=== PATIENT | female | born 1945 | race Caucasian/White ===

== ENCOUNTER 2017-03-16 11:55 | Inpatient (IN) ==
[2017-03-16] MEDS ORDERED: ASPIRIN PO STA (12:02)
[2017-03-16 12:24] LABS: BASO% 0.1 % (0.0-0.8); EOS# 0.01 X1000 (0.0-0.7); EOS% 0.1 % (0.0-10.0); HEMATOCRIT 38.6 % (37.0-47.0); HEMOGLOBIN 12.1 g/dL (12.0-16.0); LYMPH# 1.09 X1000 (1.2-3.4); LYMPH% 6.4 % (20.5-51.1); MANUAL DIFF NEEDED? NO; MCH 28.3 PG (27-31); MCHC 31.3 g/dL (33-37); MCV 90.4 FL (81-99); MONO# 0.45 X1000 (0.11-0.59); MONO% 2.7 % (1.7-9.3); MPV 9.8 FL (7.4-10.4); NEUT% 90.7 % (42.2-75.2); PLT 322 X1000 (130-400); RBC 4.27 XMIL (4.2-5.4)
[2017-03-16 12:30] LABS: INR 1.04
[2017-03-16 12:50] LABS: ALBUMIN 3.8 g/dL (3.5-5.0); CALCIUM 9.3 mg/dL (8.8-10.2); POTASSIUM 4.1 mmol/L (3.5-5.1); TOTAL BILIRUBIN 0.48 mg/dL (0.20-1.00)
[2017-03-16 12:51] LABS: ACETAMINOPHEN < 1.2 ug/mL (10-30)
--- NOTE | 2017-03-16 13:04 | Diag Imaging Result Doc PS360 ---
EXAM: CHEST-PORTABLE INDICATION: CP TECHNIQUE: One view COMPARISON: 08/06/2016 FINDINGS: The lungs are grossly clear. There is no discrete pleural fluid collection or pneumothorax. The cardiomediastinal silhouette and central vasculature are grossly unremarkable. IMPRESSION: No evidence of acute pathology by plain radiograph. Electronically signed by Jabier Pringle 03/16/2017 1:02 PM
[2017-03-16 13:09] LABS: FREE T4 1.14 ng/dL (0.93-1.70)
[2017-03-16 13:25] LABS: URINE CULTURE NEEDED? NO; URINE SOURCE CATH
[2017-03-16 13:33] LABS: URINE MICRO REVIEW NEEDED? YES
[2017-03-16 13:38] LABS: BILIRUBIN URINE SMALL (NEGATIVE); BLOOD URINE NEGATIVE (NEGATIVE); COLOR ORANGE; GLUCOSE URINE NEGATIVE (NEGATIVE); LEUKOCYTES URINE NEGATIVE (NEGATIVE); NITRITE URINE NEGATIVE (NEGATIVE); PROTEIN URINE 30 mg/dL (NEGATIVE); SP GRAVITY URINE 1.024; TURBIDITY URINE HAZY (CLEAR); UR EPITHELIAL CELLS <10 /HPF (<10); URINE BACTERIA NEGATIVE /HPF; URINE RBC <10 /HPF (<10); URINE WBC <10 /HPF (<10); UROBILINOGEN URINE 6 mg/dL (NORMAL)
[2017-03-16 13:39] LABS: URINE CASTS NONE SEEN; URINE CRYSTALS NONE SEEN; URINE SMALL ROUND CELLS NONE SEEN
[2017-03-16 13:43] LABS: UR AMPHETAMINES QUAL NONE DETECTED (NONE DETECT); UR BARBITUATES QUAL NONE DETECTED (NONE DETECT); UR BENZODIAZEPIN QUAL NONE DETECTED (NONE DETECT); UR CANNABINOIDS QUAL NONE DETECTED (NONE DETECT); UR COCAINE QUAL NONE DETECTED (NONE DETECT); UR METHADONE QUAL NONE DETECTED (NONE DETECT); UR OPIATES QUAL NONE DETECTED (NONE DETECT); UR OXYCODONE QUAL PRESUMPTIVE POSITIVE (NONE DETECT); UR PCP QUAL NONE DETECTED (NONE DETECT)
--- NOTE | 2017-03-16 14:41 | PROVIDER DOCUMENTATION ---
This chart was entered by Ila Garces Scribe, acting as scribe for Jay Rosario MD. HPI-Psychological Disorder - General Chief Complaint: Chest Pain Stated Complaint: CP Time Seen by Provider: 03/16/17 12:02 Source: patient Allergies/Adverse Reactions: Patient Allergies Allergy/AdvReac Type Severity Reaction Status Date / Time No Known Allergies Allergy Verified 03/16/17 12:16 Home Medications: Home Medication List Medication Instructions Recorded Confirmed Last Taken Type Prednisone 20 mg PO DIRECTED #9 tablet 02/21/16 Unknown Rx - History of Present Illness-Psych Nature of Presenting Problem: PT is a 71 year old female who came to the ED with a cc of chest pain and seeing a ghost. PT family agrees that they all see ghosts at their house. Onset/Duration: reports: 24 hours ago Timing: reports: still present Severity: reports: mild Situational problems related to:: reports: N/A Psychiatric Complaints: reports: hallucinating Substance Use: reports: none/never Previous psych related hospitalizations?: No Patient arrived by:: private car Similar Symptoms Previously?: No Recently seen or treated by another doctor?: No Review of Systems - Adult - REVIEW OF SYSTEMS - ADULT Constitutional: denies: chills, fever Cardiovascular: reports: chest pain. denies: irregular heart rate, syncope Respiratory: denies: cough, shortness of breath Gastrointestinal: denies: diarrhea, nausea, vomiting Psychiatric: reports: other (seeing ghosts). denies: anti-depressant use, panic attacks Past History - Adult - PAST MEDICAL HISTORY-ADULT Review of Records: reports: Old Records Reviewed, Nursing Assessment Review Major Childhood Illnesses: reports: denies history Cardiovascular: reports: HTN Respiratory: reports: asthma Gastrointestinal: reports: denies history, GERD Obstetrical/Gynecological: reports: denies history Genitourinary: reports: denies history Musculoskeletal: reports: arthritis Neurological: reports: denies history Psychiatric: reports: anxiety, depression Endocrine/Immune: reports: denies history Other Conditions: reports: denies history - PRIOR SURGERIES/PROCEDURES Surgical/Procedure History: reports: BTL - PRIOR HOSPITALIZATIONS Prior Hospitalizations: reports: none - IMMUNIZATION STATUS Childhood Immunizations: See Nurse Assessment Flu Vaccine: See Nurse Assessment - FAMILY HISTORY Family History: reviewed, not pertinent Physical Exam-Psych Focus - Physical Exam-Psych Initial Vital Signs Reviewed: Yes Appearance: appropriate appearance, neat, alert, impaired insight Neurological: alert, normal mood/affect, calm Behavior/Eye Contact/Speech: cooperative, good eye contact Thoughts/Hallucinations: normal thought pattern, visual hallucinations HENMT: normocephalic/atraumatic, moist mucous membranes Neck: non-tender, full range of motion Respiratory: chest non-tender, lungs clear, normal breath sounds Cardiovascular: normal peripheral pulses, regular rate, rhythm Abdominal Exam: normal bowel sounds, non tender, soft Back Exam: normal inspection, no CVA tenderness Extremity: normal range of motion, non-tender Integumentary: normal color, normal turgor Progress - PLAN OF CARE/RESULTS Progress/Plan/Lab Results: Vital Signs - 8 hr 03/16/17 12:05 Pulse Rate 99 H Respiratory Rate 18 Blood Pressure 108/60 O2 Sat by Pulse Oximetry 99 Laboratory Results - last 24 hr 03/16/17 03/16/17 03/16/17 11:17 11:17 11:17 WBC 16.94 H RBC 4.27 Hgb 12.1 Hct 38.6 MCV 90.4 MCH 28.3 MCHC 31.3 L RDW Std Deviation 15.9 H Plt Count 322 MPV 9.8 Neut % (Auto) 90.7 H Lymph % (Auto) 6.4 L [place] % (Auto) 2.7 Eos % (Auto) 0.1 Baso % (Auto) 0.1 Neut # (Auto) 15.38 H Lymph # (Auto) 1.09 L [place] # (Auto) 0.45 Eos # (Auto) 0.01 Baso # (Auto) 0.01 PT INR PTT (Actin FS) D-Dimer 4.54 H Sodium 139 Potassium 4.1 Chloride 97 L Carbon Dioxide 25 Anion Gap 17 BUN 31 H Creatinine 1.4 H Estimated GFR/1.73 m2 37 BUN/Creatinine Ratio 22 Glucose 170 H Calculated Osmolality 288 Calcium 9.3 Magnesium 2.0 Total Bilirubin 0.48 AST 13 ALT 8 L Alkaline Phosphatase 90 Creatine Kinase 14 L Troponin T Dju-A-Uopjqcsxskh Pept Total Protein 7.0 Albumin 3.8 Globulin 3.2 Albumin/Globulin Ratio 1.2 Vitamin B12 Folate TSH Free T4 Urine Source Urine Color Urine Turbidity Urine pH Ur Specific [place] Urine Protein Ur Glucose (Stick) Ur Ketones (Stick) Urine Blood Urine Nitrite Urine Bilirubin Urobilinogen Dipstick Urine Leukocytes Urine WBC (Auto) Urine RBC (Auto) U Epithel Cells (Auto) Urine Bacteria (Auto) Urine Crystals Small Round Cells Urine Casts Urine Yeast-like Cells Salicylates Urine Opiates Screen Ur Oxycodone Screen Ur Methadone, Qual Acetaminophen Ur Barbiturates Screen Ur Phencyclidine Scrn Ur Amphetamines Screen U Benzodiazepines Scrn Urine Cocaine Screen U Cannabinoids Screen Plasma/Serum Ethyl Alc RPR 03/16/17 03/16/17 03/16/17 11:17 11:17 11:17 WBC RBC Hgb Hct MCV MCH MCHC RDW Std Deviation Plt Count MPV Neut % (Auto) Lymph % (Auto) [place] % (Auto) Eos % (Auto) Baso % (Auto) Neut # (Auto) Lymph # (Auto) [place] # (Auto) Eos # (Auto) Baso # (Auto) PT 11.0 INR 1.04 PTT (Actin FS) 31.0 D-Dimer Sodium Potassium Chloride Carbon Dioxide Anion Gap BUN Creatinine Estimated GFR/1.73 m2 BUN/Creatinine Ratio Glucose Calculated Osmolality Calcium Magnesium Total Bilirubin AST ALT Alkaline Phosphatase Creatine Kinase Troponin T < 0.010 Cbe-B-Nkhyhhdlhun Pept 60 Total Protein Albumin Globulin Albumin/Globulin Ratio Vitamin B12 Folate TSH Free T4 Urine Source Urine Color Urine Turbidity Urine pH Ur Specific [place] Urine Protein Ur Glucose (Stick) Ur Ketones (Stick) Urine Blood Urine Nitrite Urine Bilirubin Urobilinogen Dipstick Urine Leukocytes Urine WBC (Auto) Urine RBC (Auto) U Epithel Cells (Auto) Urine Bacteria (Auto) Urine Crystals Small Round Cells Urine Casts Urine Yeast-like Cells Salicylates Urine Opiates Screen Ur Oxycodone Screen Ur Methadone, Qual Acetaminophen Ur Barbiturates Screen Ur Phencyclidine Scrn Ur Amphetamines Screen U Benzodiazepines Scrn Urine Cocaine Screen U Cannabinoids Screen Plasma/Serum Ethyl Alc RPR 03/16/17 03/16/17 03/16/17 11:17 11:17 11:17 WBC RBC Hgb Hct MCV MCH MCHC RDW Std Deviation Plt Count MPV Neut % (Auto) Lymph % (Auto) [place] % (Auto) Eos % (Auto) Baso % (Auto) Neut # (Auto) Lymph # (Auto) [place] # (Auto) Eos # (Auto) Baso # (Auto) PT INR PTT (Actin FS) D-Dimer Sodium Potassium Chloride Carbon Dioxide Anion Gap BUN Creatinine Estimated GFR/1.73 m2 BUN/Creatinine Ratio Glucose Calculated Osmolality Calcium Magnesium Total Bilirubin AST ALT Alkaline Phosphatase Creatine Kinase Troponin T Nkg-D-Meswzohtpxq Pept Total Protein Albumin Globulin Albumin/Globulin Ratio Vitamin B12 Folate > 40.0 H TSH Free T4 Urine Source Urine Color Urine Turbidity Urine pH Ur Specific [place] Urine Protein Ur Glucose (Stick) Ur Ketones (Stick) Urine Blood Urine Nitrite Urine Bilirubin Urobilinogen Dipstick Urine Leukocytes Urine WBC (Auto) Urine RBC (Auto) U Epithel Cells (Auto) Urine Bacteria (Auto) Urine Crystals Small Round Cells Urine Casts Urine Yeast-like Cells Salicylates < 3.00 L Urine Opiates Screen Ur Oxycodone Screen Ur Methadone, Qual Acetaminophen < 1.2 L Ur Barbiturates Screen Ur Phencyclidine Scrn Ur Amphetamines Screen U Benzodiazepines Scrn Urine Cocaine Screen U Cannabinoids Screen Plasma/Serum Ethyl Alc RPR 03/16/17 03/16/17 03/16/17 11:17 11:17 12:37 WBC RBC Hgb Hct MCV MCH MCHC RDW Std Deviation Plt Count MPV Neut % (Auto) Lymph % (Auto) [place] % (Auto) Eos % (Auto) Baso % (Auto) Neut # (Auto) Lymph # (Auto) [place] # (Auto) Eos # (Auto) Baso # (Auto) PT INR PTT (Actin FS) D-Dimer Sodium Potassium Chloride Carbon Dioxide Anion Gap BUN Creatinine Estimated GFR/1.73 m2 BUN/Creatinine Ratio Glucose Calculated Osmolality Calcium Magnesium Total Bilirubin AST ALT Alkaline Phosphatase Creatine Kinase Troponin T Brn-P-Vmjpxlnfquj Pept Total Protein Albumin Globulin Albumin/Globulin Ratio Vitamin B12 740 Folate TSH 0.68 Free T4 1.14 Urine Source CATH Urine Color ORANGE Urine Turbidity HAZY Urine pH 5.0 Ur Specific [place] 1.024 Urine Protein 30 A Ur Glucose (Stick) NEGATIVE Ur Ketones (Stick) NEGATIVE Urine Blood NEGATIVE Urine Nitrite NEGATIVE Urine Bilirubin SMALL A Urobilinogen Dipstick 6 A Urine Leukocytes NEGATIVE Urine WBC (Auto) <10 Urine RBC (Auto) <10 U Epithel Cells (Auto) <10 Urine Bacteria (Auto) NEGATIVE Urine Crystals NONE SEEN Small Round Cells NONE SEEN Urine Casts NONE SEEN Urine Yeast-like Cells NONE SEEN Salicylates Urine Opiates Screen Ur Oxycodone Screen Ur Methadone, Qual Acetaminophen Ur Barbiturates Screen Ur Phencyclidine Scrn Ur Amphetamines Screen U Benzodiazepines Scrn Urine Cocaine Screen U Cannabinoids Screen Plasma/Serum Ethyl Alc RPR NON-REACTIVE 03/16/17 12:37 WBC RBC Hgb Hct MCV MCH MCHC RDW Std Deviation Plt Count MPV Neut % (Auto) Lymph % (Auto) [place] % (Auto) Eos % (Auto) Baso % (Auto) Neut # (Auto) Lymph # (Auto) [place] # (Auto) Eos # (Auto) Baso # (Auto) PT INR PTT (Actin FS) D-Dimer Sodium Potassium Chloride Carbon Dioxide Anion Gap BUN Creatinine Estimated GFR/1.73 m2 BUN/Creatinine Ratio Glucose Calculated Osmolality Calcium Magnesium Total Bilirubin AST ALT Alkaline Phosphatase Creatine Kinase Troponin T Mrw-U-Xzkivwpvwww Pept Total Protein Albumin Globulin Albumin/Globulin Ratio Vitamin B12 Folate TSH Free T4 Urine Source Urine Color Urine Turbidity Urine pH Ur Specific [place] Urine Protein Ur Glucose (Stick) Ur Ketones (Stick) Urine Blood Urine Nitrite Urine Bilirubin Urobilinogen Dipstick Urine Leukocytes Urine WBC (Auto) Urine RBC (Auto) U Epithel Cells (Auto) Urine Bacteria (Auto) Urine Crystals Small Round Cells Urine Casts Urine Yeast-like Cells Salicylates Urine Opiates Screen NONE DETECTED Ur Oxycodone Screen PRESUMPTIVE POSITIVE A Ur Methadone, Qual NONE DETECTED Acetaminophen Ur Barbiturates Screen NONE DETECTED Ur Phencyclidine Scrn NONE DETECTED Ur Amphetamines Screen NONE DETECTED U Benzodiazepines Scrn NONE DETECTED Urine Cocaine Screen NONE DETECTED U Cannabinoids Screen NONE DETECTED Plasma/Serum Ethyl Alc RPR Orders Category Date Time Status Cardiac Monitoring DIRECTED Care 03/16/17 12:02 Active Saline Loc NOW Care 03/16/17 12:02 Active CHEST-PORTABLE [RAD] Stat Exams 03/16/17 12:02 Completed LUNG SCAN / VQ [NM] Stat Exams 03/16/17 13:37 Ordered ACETAMINOPHEN [TDM] Stat Lab 03/16/17 11:17 Completed ALCOHOL BLOOD Stat Lab 03/16/17 11:17 Completed CBC WITH ELECTRONIC DIFF [HEME] Stat Lab 03/16/17 11:17 Completed CK PROFILE [SP CHEM] Stat Lab 03/16/17 11:17 Completed COMPREHENSIVE METABOLIC PANEL [CHEM] Stat Lab 03/16/17 11:17 Completed D-DIMER [CHEM] Stat Lab 03/16/17 11:17 Completed FOLATE Stat Lab 03/16/17 11:17 Completed FREE T4 Stat Lab 03/16/17 11:17 Completed MAGNESIUM [CHEM] Stat Lab 03/16/17 11:17 Completed PRO B-NATRIURETIC PEPTIDE Stat Lab 03/16/17 11:17 Completed PROTIME WITH INR [COAG] Stat Lab 03/16/17 11:17 Completed PTT [COAG] Stat Lab 03/16/17 11:17 Completed RPR [SERO] Stat Lab 03/16/17 11:17 Completed SALICYLATES [TDM] Stat Lab 03/16/17 11:17 Completed TROPONIN T Stat Lab 03/16/17 11:17 Completed TSH Stat Lab 03/16/17 11:17 Completed UA NIMS W/REFLEX CULT [URINALYSIS] Stat Lab 03/16/17 12:37 Completed URINE DRUG SCREEN Stat Lab 03/16/17 12:37 Completed URINE MANUAL MICROSCOPIC [URINALYSIS] Stat Lab 03/16/17 12:37 Completed VITAMIN B12 Stat Lab 03/16/17 11:17 Completed Aspirin Med 03/16/17 12:02 Discontinued 325 mg PO STAT STA EKG [EKG] Stat Ther 03/16/17 12:02 Ordered US [Venous U/S Bilateral Legs] Stat Ther 03/16/17 13:37 Completed Result Diagrams: 03/16/17 11:17 03/16/17 11:17 - EKG 1 Time of EKG reading by physician:: 12:06 EKG Read and Signed by:: Jay Rosario EKG Interpretation (*Must complete 3 of following elements*): Abnormal Rate: 93 (prolonged QT ) Rhythm: NSR - XRAY 1 XRAY Study: Chest (no evidence of acute pathology by plain radiograph) - ULTRASOUND (By Radiology) 1 US Study: Lower Ext Impression: Normal US Results: Neg for DVT - CONSULTS/PCP/HOSPITALIST Notification #1 *Consult/PCP/Hospitalist*: Hospitalist Time Discussed: 14:39 Consult Disposition: Will see in ED, Admit Departure - Departure Date of Disposition Decision: 03/16/17 Time of Disposition Decision: 14:39 DIAGNOSIS: Chest pain, Elevated d-dimer, Hallucinations Disposition: ADMITTED INPATIENT 09 Certified Medical Emergency: Emergent Condition: Stable - Critical Care Note This patient required my direct & personal management of CC.: No This chart was documented by the indicated scribe, (Ila Garces Scribe) and accurately reflects the services I performed and decisions made by me, Jay Rosario MD, as attested by the provider's signature.
[2017-03-16] MEDS ORDERED: ZOFRAN IV PRN (16:02)
[2017-03-16 16:29] LABS: UR CREAT RANDOM 306.4 mg/dL (11-20)
--- NOTE | 2017-03-16 16:44 | HISTORY AND PHYSICAL ---
PCP: Dr. Jarret Rogel. CHIEF COMPLAINT: Chest pain. HISTORY OF PRESENT ILLNESS: Ms. Nina is a 71-year-old female with a history of asthma, hypertension, early Alzheimer's, chronic back pain, congestive heart failure who presents with chest pain that began last evening. The patient reports that she has "ghosts" in her house and she awoke to seeing 1 last night and she began having chest pain, she describes a midsternal chest pain radiating up to the neck. She also reports at that time she became "paralyzed" and could not move. This lasted around 15 minutes. Pain resolved and she went to bed. She woke up again this morning and had chest pain again at rest. It was described as midsternal radiating up to the neck associated with nausea, vomiting and diaphoresis. She denies any shortness of breath. She came to the ER for evaluation. In the ER she had labs and diagnostics done. She was noted white count of 16, creatinine of 1.4 and a D-dimer of 4.54. Drug screen was positive for oxycodone. Her chest x-ray did not show anything acute, her EKG showed sinus rhythm without any acute abnormalities. Because of her creatinine she could not have a CTA ordered. Venous Dopplers were done and they were negative for DVT. She is currently chest pain-free. She is now going to be admitted for further treatment and evaluation. PAST MEDICAL HISTORY: 1. Congestive heart failure, type unknown. 2. Hypertension. 3. Alzheimer disease. 4. Chronic back pain. 5. CHF. 6. Asthma. 7. Depression, anxiety. SURGICAL HISTORY: She has had a tubal ligation. SOCIAL HISTORY: She denies alcohol, tobacco or drug use. She lives with her family. Of note every family member in the room, 4 of them, also report of seeing ghosts in the house. FAMILY HISTORY: Noncontributory. REVIEW OF SYSTEMS: A 14 point review of systems obtained and found to be negative with the exception of the HPI. ALLERGIES: No known drug allergies. HOME MEDICATIONS: Currently being compiled. PHYSICAL EXAMINATION: VITAL SIGNS: Blood pressure is 117/61, heart rate is 90, respiratory 20, O2 saturation 98% on 5 L nasal cannula. GENERAL: Elderly 71-year-old female, appears older than stated age lying in hospital bed. No acute distress. NEUROLOGIC: She is awake, alert, oriented and follows commands without focal deficits. HEENT: Head is atraumatic, normocephalic. Pupils are equal, round, and reactive to light. Oral mucosa is dry. Trachea is midline. There is no JVD. CHEST: Clear to auscultation bilaterally. CV: Regular rate and rhythm. S1-S2 is noted. No murmurs. GI: Soft, nondistended, nontender. Bowel sounds positive. EXTREMITIES: Without edema, clubbing or cyanosis. Pulses are palpable bilaterally. DIAGNOSTIC DATA: Chest x-ray negative. EKG sinus rhythm without acute ST or T abnormalities. WBC 16.94, hemoglobin 12.1, hematocrit 38.6, platelet count 322,000. D-dimer 4.54, INR 1.04. Sodium 139, potassium 4.1, chloride 97, CO2 25, anion gap 17, BUN 31, creatinine 1.4, glucose is 170, magnesium 2.0. LFTs within normal limits. CK and troponin negative. ProBNP 60, vitamin B12 740, folate greater than 40, TSH 0.68, free T4 1.14. UA is negative for urinary tract infection. Salicylate level negative. Oxycodone screen positive, acetaminophen level negative, RPR nonreactive. ASSESSMENT AND PLAN: 1. Chest pain: We are going to admit her to the floor tele, continue trending cardiac enzymes, check an echocardiogram and consult with Cardiology. We are also going to check a V/Q scan of her lungs to rule out PE given her elevated D-dimer. 2. Elevated D-dimer: At this time CTA is unable to be done secondary to renal failure. We are continuing to give IV fluid hydration and will check a V/Q scan of the lungs , venous Doppler ultrasound is negative, this is per preliminary report. 3. Leukocytosis. It does seem like the patient takes steroids, there is a question of prednisone history. At any rate there is no nidus of infection. No fever. Chest x-ray is negative. Urinalysis does not show any infection. Will continue to monitor. 4. Acute kidney injury: Will give IV fluids and check urine studies, avoid any nephrotoxins. 5. Visual hallucinations: Unclear as to the actual extent. Interestingly, the 4 family members in the room also report seeing the same type of hallucinations. May need psychiatric evaluation however this can either be done at a later date or outpatient. She currently denies any suicidal, homicidal ideations and no hallucinations at this time. 6. Questionable congestive heart failure: We are going to check an echocardiogram, there is no signs of hypovolemia at this time. Will check strict I's and O's and ask cardiology to evaluate as well. 7. Deep vein thrombosis prophylaxis will be provided with Lovenox. Further recommendations to follow. Dictated by LEAH Matamoros for May Luna MD cc: LEAH Matamoros MD The patient was seen and examined by me. I agree with the assessment and plan as dictated. CANDICE
[2017-03-16] MEDS: LOVENOX SUBQ SCH (17:04)
[2017-03-16] MEDS: 1/2 NS 1,000 ML IV SCH (17:04)
--- NOTE | 2017-03-16 17:40 | CONSULTATION ---
DATE OF CONSULTATION: 03/16/2017 REASON FOR CONSULTATION: Cardiology was consulted for chest pain, has abnormal D-dimers and is going to have a V/Q scan done. HISTORY OF PRESENT ILLNESS: Ms. Nina is a 71-year-old lady with history of asthma, hypertension, Alzheimer's, chronic back pain, history of heart failure, presents with chest pain. She had that last evening. Describes as midsternal, radiating to the of her neck. She also states that she became paralyzed, could not move. Symptoms of pain lasted for about 15 minutes, woke up this morning. Again had recurrent episode of chest pain. At time of my examination, she did not complain of any chest pain. There was no pleuritic component of chest pain. She had a white count of 16, creatinine 1.4, D-dimer 4.5. Her drug screen was positive for oxycodone. Electrocardiogram revealed normal sinus rhythm. There were no acute ST-T changes. There are no palpitations. There is no syncope. PAST MEDICAL HISTORY: 1. Heart failure. Unknown etiology. 2. Hypertension. 3. Alzheimer's. 4. Chronic back pain 5. Asthma. 6. Depression. 7. Anxiety. 8. Tubal ligation. SOCIAL HISTORY: Denies alcohol or tobacco abuse. REVIEW OF SYSTEM: A 14-point review of systems was done.GI: There is no nausea, vomiting or diarrhea. There is no history of hematemesis or melena. Neurologic: No focal weakness to suggest a CVA or TIA. ALLERGIES: No known drug allergies. HOME MEDICATIONS: Have not yet been updated. PHYSICAL EXAMINATION: Vital Signs: Blood pressure 124/56. Heart: Jugular venous pressure was normal. 1st and 2nd heart sounds were heard. There was no S3 gallop. Respiratory: Normal air entry. There are no crepitations or rhonchi. Abdomen: Soft, nontender. There was no guarding or rigidity. Bowel sounds were heard. Central nervous system: Alert, oriented, was moving all 4 extremities. Detailed central nervous system examination not performed. HEENT: Atraumatic, normocephalic. Pupils were equal and reacting to light. LABORATORY/IMAGING: Chest x-ray was negative. WBC 16, hemoglobin 12.1, hematocrit 38, platelet count 322,000. D-dimer abnormal at 4.54. LFTs are normal. CK and troponin negative. ProBNP 60. TSH 0.68. Salicylate negative. ASSESSMENT AND PLAN: 1. Chest pain. Cardiac enzymes negative. She is going to undergo a V/Q scan given the elevated D-dimer to rule out pulmonary embolism. If the D-dimer relate that the pulmonary embolism scan is negative, then we will set her up to have a Lexiscan Cardiolite stress test. Given that she is going to receive nuclear medical testing, the earliest we can do a stress test would be on Friday. 2. We will get an echocardiogram to assess cardiac and valvular function. The leukocytosis, she has been on steroids for unknown reason. At the present time that could account for white count elevated. 3. Renal insufficiency, acute IV fluids are being given. I would recommend continuing that. 4. Patient's family was told that there were some visual hallucinations. This was noted in the chart. I would recommend CT scan head without contrast as well to make sure there is no obvious pathology. 5. As far as history of heart failure is concerned, she is currently euvolemic. I am not sure as far as the diagnosis is concerned. Thank you for the consult. We will follow hospital course. cc: Florentino Amos MD
--- NOTE | 2017-03-16 18:03 | Diag Imaging Result Doc PS360 ---
EXAM: LUNG SCAN / VQ INDICATION: CP with elevated D-dimer TECHNIQUE: 34.7 mCi of aerosolized technetium 99 DTPA was administered for the ventilation portion of the scan. 5.8 mCi of IV technetium 99 MAA was administered for the perfusion portion of the scan. COMPARISON: None. FINDINGS: There are no matched or unmatched perfusion defects identified. The ventilation portion of the scan is unremarkable as well. IMPRESSION: Negative VQ scan. Electronically signed by Jabier Pringle 03/16/2017 6:00 PM
[2017-03-16 19:28] LABS: HEMOGLOBIN A1C 5.5 % (4.8-6.0)
--- NOTE | 2017-03-16 21:33 | Diag Imaging Result Doc PS360 ---
EXAM: HEAD W/O CONTRAST TECHNIQUE: Dose reduction protocol was used. INDICATION: hallucinations COMPARISON: 09/23/2014 FINDINGS: There is no definite acute infarct given the limited sensitivity of CT versus MRI. There is no discrete intracranial mass, mass effect, or intracranial hemorrhage. The surrounding soft tissues and bony structures are essentially unremarkable. IMPRESSION: No evidence of acute intracranial pathology. Electronically signed by Jabier Pringle 03/16/2017 9:31 PM
[2017-03-16] MEDS: TYLENOL PO PRN (23:23)
[2017-03-17] MEDS: 1/2 NS 1,000 ML IV SCH ×2 (05:20→22:06)
[2017-03-17] MEDS: PRILOSEC PO SCH ×2 (05:21→06:10)
--- NOTE | 2017-03-17 06:04 | EKG Report ---
Test Performed on : 03/16/2017 12:06:51 PM Test Reason : CP Blood Pressure : / mmHG Vent. Rate : 093 BPM Atrial Rate : 093 BPM P-R Int : 144 ms QRS Dur : 072 ms QT Int : 394 ms P-R-T Axes : 055 046 063 degrees QTc Int : 489 ms Normal sinus rhythm. Prolonged QT Abnormal ECG No previous ECGs available Unconfirmed Result
[2017-03-17 06:48] LABS: MANUAL DIFF NEEDED? NO
--- NOTE | 2017-03-17 07:08 | EKG Report ---
Test Performed on : 03/17/2017 06:55:16 AM Test Reason : chest pain Blood Pressure : / mmHG Vent. Rate : 074 BPM Atrial Rate : 074 BPM P-R Int : 156 ms QRS Dur : 082 ms QT Int : 428 ms P-R-T Axes : 058 050 070 degrees QTc Int : 475 ms Normal sinus rhythm. Normal ECG When compared with ECG of 16-MAR-2017 12:06, (Unconfirmed) No significant change was found Confirmed by Maya Nick MD ([id number]) on 03/18/2017 6:03:13 AM
[2017-03-17 07:36] LABS: BASO% 0.2 % (0.0-0.8); EOS# 0.24 X1000 (0.0-0.7); EOS% 2.8 % (0.0-10.0); HEMOGLOBIN 10.1 g/dL (12.0-16.0); LYMPH# 2.05 X1000 (1.2-3.4); LYMPH% 23.6 % (20.5-51.1); MCHC 30.6 g/dL (33-37); MCV 91.4 FL (81-99); MONO# 0.66 X1000 (0.11-0.59); MONO% 7.6 % (1.7-9.3); MPV 9.2 FL (7.4-10.4); NEUT% 65.8 % (42.2-75.2); PLT 252 X1000 (130-400); RBC 3.61 XMIL (4.2-5.4)
[2017-03-17] MEDS: TYLENOL PO PRN (10:14)
[2017-03-17] MEDS: ASPIRIN PO SCH (10:14)
[2017-03-17 11:23] LABS: AGAP 11; BUN 26 mg/dL (8-22); CALCIUM 9.2 mg/dL (8.8-10.2); CHLORIDE 101 mmol/L (98-107); COSMO 286; HDL 29 mg/dL (45-65); LDL 102 mg/dL; SODIUM 140 mmol/L (136-145); TCO2 28 mmol/L (25-35); TRIGLYCERIDES 139 mg/dL (35-135); VLDL 28 mg/dL
--- NOTE | 2017-03-17 14:35 | ECHO REPORT ---
ORDER DATE: 03/16/2017 INDICATION: CHF, chest pain, hypertension, Alzheimer's. FINDINGS: 1. Right atrium is normal in size. 2. Mild tricuspid regurgitation. RV systolic pressure of 29. 3. Normal RV size and systolic function. 4. No significant pulmonic insufficiency. 5. Normal left atrial size with a dimension of 3.8 cm. 6. No mitral valve prolapse. Mild mitral regurgitation. 7. Normal LV size, end-diastolic dimension of 3.5. Normal wall thicknesses with a posterior and interventricular septal wall thickness of 0.9 cm each. Normal LV systolic function. Calculated EF 61% with normal wall motion. 8. Aortic valve opens well and appears trileaflet. No evidence of stenosis or insufficiency. 9. Aorta appears normal in visualized segments. 10. No pericardial effusion seen. cc: MD Dk Conteh CRNP
--- NOTE | 2017-03-17 15:38 | PROGRESS NOTE ---
DATE: 03/17/2017 SUBJECTIVE: This is a 71-year-old who presented with chest pain. She has had several episodes. She describes it as pressure. Sometimes in the morning. Sometimes during the middle of the day. It does not seem to present after eating necessarily but it does radiate into her left arm. She has a history of asthma, hypertension, early Alzheimer's, chronic back pain, and posterior neck pain, history of congestive heart failure. Patient reports that she has ghosts in her house and she woke up, saw 1, and started having chest pain described as midsternal chest pain radiating to her neck. Reports at that time she became paralyzed and could not move. It lasted about 15 minutes. Resolved and she went to bed. Woke up again the following morning in pain. It came on at rest. Described midsternal, radiating up into her neck. Associated with nausea, vomiting, diaphoresis. She denies any shortness of breath. She came to the emergency for evaluation. D- dimer was 4.45. Drug screen was positive for oxycodone and chest x-ray did not show any acute. EKG showed sinus rhythm without any acute abnormalities. Because of her creatinine she did not have a CT angiogram ordered but venous Dopplers were done and they were negative. So she was admitted for chest pain, rule out unstable angina. OBJECTIVE: General: This morning, she is awake and alert. Requesting something for pain for her neck. Asking about her Mobic. Asking about her OxyContin. Vital signs: Temp 98.4 degrees, pulse 79, respirations 18, blood pressure 132/51. Lungs: Clear in all lung cox. Cardiovascular: Regular rate without murmur or S3. Abdomen: Soft. Skin: Warm and dry. Intake and output: Urine output was 1900 mL. LAB: White count 8,680, hematocrit 33, platelet count 252,000. Sodium 140, potassium 4.0, chloride 101, bicarb 28, BUN 26, creatinine 1.1. Ferritin level was 163. CT of her head without contrast was negative. No evidence of acute intracranial pathology. Lung V/Q scan: Negative V/Q scan. ASSESSMENT AND PLAN: 1. Dr. Amos has evaluated. She had chest pain. Cardiac enzymes negative. She has undergone a V/Q scan. I think they want to set her up for a Lexiscan cardiac stress test. Given that she is going to receive nuclear testing, thought they would do the fasting or they can do the stress test probably Friday, tomorrow. 2. Check an echocardiogram and look at valvular function. She has a history of questionable congestive heart failure. I would like to look at left ventricular function. 3. Renal insufficiency. Continue present fluids. 4. Family was told she had some visual hallucination. Of course, she is on OxyContin. We did a CT of her head. She has apparently underlying early dementia. 5. Nutrition looks okay. REVIEW OF ORDERS: I do not see any change at this point this. cc: Sriram Weathers MD
[2017-03-17] MEDS: LOVENOX SUBQ SCH (16:58)
[2017-03-17] MEDS: ATIVAN PO PRN (17:44)
--- NOTE | 2017-03-17 21:43 | Extremity Venous Study ---
PROCEDURE NAME: Venous U/S Bilateral Legs - 03/16/2017 REQUESTING PHYSICIAN: Dr. Rosario. POLICE SUPERINTENDENT: Omer. INDICATION: Shortness of breath with D-dimer of 4.54. FINDINGS: Deep and superficial veins of the bilateral lower extremities were visualized along their course. All veins were compressible with forward flow. No evidence of deep or superficial venous thrombosis seen. SUMMARY: No DVT or SVT seen in bilateral lower extremities. cc: Shanell Coronado MD
[2017-03-18] MEDS: PRILOSEC PO SCH ×2 (05:33→06:04)
[2017-03-18 06:11] LABS: MANUAL DIFF NEEDED? NO
[2017-03-18 06:28] LABS: BASO% 0.3 % (0.0-0.8); EOS# 0.32 X1000 (0.0-0.7); HEMATOCRIT 32.8 % (37.0-47.0); LYMPH# 2.04 X1000 (1.2-3.4); LYMPH% 25.7 % (20.5-51.1); MCH 27.5 PG (27-31); MCHC 30.5 g/dL (33-37); MCV 90.4 FL (81-99); MONO# 0.62 X1000 (0.11-0.59); MONO% 7.8 % (1.7-9.3); MPV 9.1 FL (7.4-10.4); NEUT% 62.2 % (42.2-75.2); PLT 262 X1000 (130-400); RBC 3.63 XMIL (4.2-5.4)
[2017-03-18 06:48] LABS: AGAP 11; BUN 17 mg/dL (8-22); CALCIUM 9.2 mg/dL (8.8-10.2); CHLORIDE 103 mmol/L (98-107); COSMO 285; POTASSIUM 4.1 mmol/L (3.5-5.1); SODIUM 142 mmol/L (136-145); TCO2 28 mmol/L (25-35)
--- NOTE | 2017-03-18 08:13 | PROGRESS NOTE ---
DATE: 03/18/2017 SUBJECTIVE: She had an uneventful night. She did have some more chest pain, neck pain, radiation into her arm. Her last one, she said, was one this morning. Her daughter yesterday had a seizure in the room, her youngest daughter. Apparently, she is doing okay. We took her down to the emergency room. I explained that we are going to test her heart out, and if her heart is okay, will see if we can get her home. OBJECTIVE: Vital Signs: Temp 98.6 degrees, pulse 70, respirations 16, blood pressure 139/57, CVP less than 6 cm. Lungs: Clear anterolateral. Cardiovascular: Regular rhythm and rate without murmur or S3. Abdomen: Soft. Skin: Warm and dry. Good urine output, almost 5 L. LABORATORY DATA: Reviewed labs from this morning. White count 7950, hematocrit 32, platelet count 262,000. Chemistries look good. Creatinine 0.9. ASSESSMENT AND PLAN: 1. Cardiac enzymes, electrocardiogram unremarkable. V/Q scan was negative, so plan is, I think, Lexiscan testing today. GXT, echocardiogram pending. 2. Renal insufficiency seems to have responded to fluids. Good urine output. Creatinine came down from 1.1 to 0.9. 3. Suspect musculoskeletal discomfort from her neck, which has been longstanding. 4. The family did report that she had some visual hallucinations. However, she was taking OxyContin, and neurologic workup is unremarkable. No focal neurologic deficits. Reviewed orders. No changes. cc: Sriram Weathers MD
[2017-03-18] MEDS: ASPIRIN PO SCH (11:37)
[2017-03-18] MEDS: 1/2 NS 1,000 ML IV SCH ×2 (11:38→22:38)
[2017-03-18] MEDS: TYLENOL PO PRN ×2 (13:39→22:37)
[2017-03-18] MEDS: LOVENOX SUBQ SCH (15:51)
[2017-03-18] MEDS: ATIVAN PO PRN (22:37)
[2017-03-19] MEDS: PRILOSEC PO SCH (06:14)
[2017-03-19 07:07] LABS: AGAP 11; BUN 14 mg/dL (8-22); CALCIUM 9.1 mg/dL (8.8-10.2); CHLORIDE 104 mmol/L (98-107); COSMO 282; POTASSIUM 4.3 mmol/L (3.5-5.1); SODIUM 141 mmol/L (136-145); TCO2 26 mmol/L (25-35)
[2017-03-19] MEDS ORDERED: LEXISCAN ONE (08:22)
[2017-03-19] MEDS: ASPIRIN PO SCH (13:34)
[2017-03-19] MEDS: 1/2 NS 1,000 ML IV SCH (13:34)
--- NOTE | 2017-03-19 13:43 | PROGRESS NOTE ---
DATE: 03/19/2017 Ms. Nina just finished her I believe Lexiscan. She has not had any more chest pain.Vital signs: Temperature 98.2 degrees, pulse 80, respirations 18, blood pressure 146/72. Lungs: Are clear in all lung cox. Cardiovascular: Regular rhythm and rate without murmur or S3. Abdomen: Soft. Skin: Is warm and dry. Urine output over 2 L. LAB: Reviewed. Hematocrit stable at 32. Electrolytes look good. Creatinine 0.8. 1. The patient underwent a Lexiscan today. Awaiting results. We will discuss with Cardiology. If normal she can go home. She presented with chest pain. EKG and cardiac enzymes unremarkable. 2. Renal insufficiency which has improved. Creatinine down to baseline 0.9. 3. Suspect musculoskeletal discomfort from her neck which is probably causing the chest pain as well. 4. Apparently had some episodes of visual hallucinations. She has not had any further trouble. She has had an echocardiogram with Doppler system on the . Right atrium normal, mild tricuspid regurgitation. Normal right ventricular size and systolic function. Normal left atrial size. Dimension 3.8, left ventricle normal wall thickness. Ejection fraction 61%. cc: Sriram Weathers MD
[2017-03-19] MEDS: TYLENOL PO PRN (15:16)
[2017-03-19 15:28] VITALS: BP 155/77
--- NOTE | 2017-03-19 16:33 | DISCHARGE SUMMARY ---
ADMISSION DATE: 03/16/2017 DISCHARGE DATE: 03/19/2017 HOSPITAL COURSE: She presented with chest pain. A 71-year-old with a history of asthma, hypertension, early Alzheimer's, chronic back pain, congestive heart failure. Presented with chest pain on the evening of 03/16/2017. Presented and said she was seeing ghosts in her house, woke up seeing one that night and started having chest pain, describing as midsternal chest pain radiating to the neck. Reports that she became paralyzed and could not move. It lasted for about 15 minutes, pain resolved, and she went to bed and woke up the following morning and there was chest pain again, midsternal, radiating up to the neck, associated with nausea, vomiting and diaphoresis. Denied any shortness of breath. Came to the ER for evaluation. She was noted to have a white count of 16,000, creatinine 1.4, D-dimer 4.54. Drug screen was positive for oxycodone. Chest x-ray chest did not show anything acute, her EKG shows sinus rhythm without any acute abnormalities. Because of elevated creatinine, she did not have a CTA and she had noninvasive venous studies done on both legs which were negative for DVT. She was admitted. Chest pain seemed to resolve. Because of elevated D-dimer we got a V/Q scan which was negative. Echocardiogram was normal, normal left ventricular function. She underwent Lexiscan nuclear Cardiolite GXT, and no sign of ischemia. Good left ventricular function. I felt she could go home on 03/19/2017. I have cautioned her about the oxycodone. I wonder if this could account for some of her symptoms and seeing ghosts. She does have musculoskeletal pain. I suspect the pain may be related to musculoskeletal, specifically cervical arthritis, so we will let her go home. MEDICATIONS: She is on allopurinol 100 mg a day, Celexa 40 mg a day, Flexeril 10 mg a day, furosemide 20 mg q.a.m., lisinopril-hydrochlorothiazide 20-25, 1 a day, Ativan 0.5 mg t.i.d. I will have her watch the oxycodone. She has 10 mg q.12, potassium chloride 10 mEq a day, prednisone 20 mg p.o. daily. I think she had 9 tablets left. FOLLOW-UP: Follow up with her primary care. cc: Sriram Weathers MD
--- NOTE | 2017-03-19 18:23 | Diag Imaging Result Document ---
PROCEDURE NAME: MYOCARDIAL PERF SCAN, STR/REST - 03/18/2017 STUDY: This is a 2-day rest-stress Lexiscan myocardial perfusion study. INDICATION: Chest pain. Coronary heart disease being evaluated. REQUESTING PHYSICIAN: Dr. Amos and hospitalist service, Dr. Weathers. PRIMARY DOCTOR: Dr. Rogel. DESCRIPTION: The patient came into the Nuclear Lab on March 18 for rest images. At that time, she was injected with technetium 99 sestamibi 26.8 millicuries. The patient was brought back to the Stress Lab on March 19 for a stress study, received infusion of Lexiscan 0.4 mg. At peak infusion, injected with technetium 99 sestamibi 26.3 millicuries. Multiple tomographic views of the cardiac structure were obtained following the completion of the protocol. SUMMARY OF ELECTROCARDIOGRAPHIC PORTION OF STUDY: Resting ECG shows sinus rhythm, rate 71 beats per minute, resting blood pressure 162/73. Resting ECG is unremarkable. During the infusion of Lexiscan, the heart rate increased to a maximum of 98 beats per minute. Blood pressure dropped to 131/76 and subsequently came back up to 163/83. The patient reported no chest pain, shortness of breath, or palpitations. ECG showed no changes. No arrhythmia was noted. IMPRESSION: In summary, the electrocardiographic response to infusion of Lexiscan is normal. SUMMARY OF MYOCARDIAL PERFUSION PORTION OF STUDY: Poststress tomographic views of the left ventricle showed normal homogeneous distribution of radiotracer throughout the entire left ventricular myocardium. There is no evidence of any postexercise defect. The rest images show normal perfusion. Polar plots showed no evidence of neither inducible ischemia nor myocardial scar. Gated SPECT shows normal left ventricular systolic function. Ejection fraction 82%. Small ventricular volumes. No wall motion abnormality. Lung-heart ratio is normal. TID is normal. IMPRESSION: In summary, this study showed: 1. Normal electrocardiographic response to infusion of Lexiscan. 2. Normal poststress myocardial perfusion scan. There is no scintigraphic evidence of pharmacologically induced myocardial ischemia. 3. Normal left ventricular systolic function. Ejection fraction estimated at 82% with normal ventricular volumes. No wall motion abnormality. This study represents low risk for ischemic events. cc: MD Florentino Torres MD
== END 2017-03-19 16:27 | disposition home health service (06) ==
LOC: ED 11:55 → 4N 11:55 → SUATTDRO 15:48
PROVIDERS: ATTEND Emergency Medicine